=== PATIENT | male | born 1945 | race African-American/Black ===

== ENCOUNTER 2016-08-06 13:26 | Inpatient (IN) | payer MEDICARE, MEDICAID ==
[~2016-08-06] VITALS: Ht 172.7 cm; Wt 109.2 kg
[~2016-08-06 13:26] MED LIST: 00186-0370-20; ACETAMI; ADVAIR HFA1 AE1 IH; ALBUTEROL0.83 MG/ML IH; ALBUTEROL1.25 MG/3; ASPIRIN 32325 MG/TA1 PO; ASPIRIN 32325 MG/TAB PO; ASPIRIN PO; BENICAR HCT 12.1 TAB PO; BENICAR HCT 251 TAB PO; CENTRUM SILVER1 TA3 PO; CIPRO 500MG TA500 MG PO; COMBIRESP IH; COMPLETE SENIOR1 TA1 PO; D O S100 MG PO; DALIRESP500 MCG PO; DEXILANT60 MG PO; FERROUS SU325 MG/TAB PO; FLOMAX 0.40.4 MG/CAP PO; GLUCOPHAGE500 MG/TAB PO; HCTZ 25MG TAB25 MG PO; HCTZ 25MG25 MG PO; HYDROCODONE; HYZAAR 50-12.1 UDTAB PO; IPRATROPIUM BROM3 M1 IH; LEVAQUIN 5500 MG/TA1 PO; LEVAQUIN 750MG750 M1 PO; LISINOPRIL20 MG PO; LORTAB 7.5/5001 TAB PO; LOTENSIN HCT 201 TAB; METFORMIN500 MG PO; MOTRIN 200200 MG/TAB PO; MULTI VITAMINS1 TAB PO; MULTIPLE VITAMI1 CAP PO; NORCO 325 MG-51 TAB; NORCO 325 MG-51 TAB PO; NORCO 325 MG-7.1 TAB PO; NORVASC 10MG10 MG PO; PREDNISONE20 MG PO; PRIL40; PRIL40 PO; PRILOSEC 20MG20 MG PO; PRINIVIL20 MG PO; PROTONIX 40MG T40 MG PO; PROVENTIL0.09 MG/A1 IH; SIMVASTATIN40 MG PO; STOOL SOFTENER100 M2 PO; THEO-24 30300 MG/CAP PO; TUSS PO; ZITHROMAX 250M250 MG PO; ZITHROMAX500 M2 PO; ZOCOR 40MG40 MG PO; aspirin
[2016-08-06] MEDS ORDERED: ASPIRIN E.C. 8181 MG PO (14:00)
[2016-08-06] MEDS ORDERED: ANORO IH (14:00)
[2016-08-06] MEDS ORDERED: THEO-24 30300 MG/CAP PO (14:02)
[2016-08-06 14:11] LABS: HEMATOCRIT 41.7 % (42.0-52.0); HEMOGLOBIN 13.9 g/dl (13.5-18.0); MEAN CELL VOLUME 83 fl (80.0-100.0); MEAN CORPUSCULAR HEMOGLOBIN 28 pg (27.0-31.0); MEAN CORPUSCULAR HGB CONC 33 g/dl (33.0-37.0); MEAN PLATELET VOLUME 9.2 fl (7.4-10.4); PLATELET COUNT 194 K/mm3 (130-400); RED BLOOD COUNT 5.02 M/mm3 (4.20-5.60); REDCELL DISTRIBUTION WIDTH-CV 14.5 % (11.5-14.5)
[2016-08-06 14:14] LABS: ADD PATHOLOGY DIFF REVIEW NO; WHITE BLOOD COUNT 23.6 K/mm3 (4.8-10.8)
[2016-08-06] MEDS ORDERED: COZAAR 50MG50 MG/TAB PO (14:15)
[2016-08-06] MEDS ORDERED: PREDNISONE10 MG PO (14:18)
[2016-08-06] MEDS ORDERED: FLOVENT 110MCG7.9 GM IH (14:19)
[2016-08-06 14:24] LABS: INR 1.3 (0.8-3.0); PROTHROMBIN TIME 14.3 SECONDS (9.7-12.8)
[2016-08-06 14:29] LABS: ADJUSTED CALCIUM 9.8 mg/dL (8.4-10.2); ALANINE AMINOTRANSFERASE 21 U/L (21-72); ALBUMIN 3.6 gm/dL (3.5-5.0); ALKALINE PHOSPHATASE 79 U/L (50-136); ANION GAP 14 mmol/L (7-16); BILIRUBIN,TOTAL 1.2 mg/dL (0.0-1.0); BLOOD UREA NITROGEN 24 mg/dL (9-20); CALCIUM 9.5 mg/dL (8.4-10.2); CARBON DIOXIDE 24 mmol/L (22-30); CHLORIDE 98 mmol/L (98-107); CREATININE, serum 1.18 mg/dL (0.66-1.25); GLUCOSE 138 mg/dL (74-106); POTASSIUM 3.1 mmol/L (3.4-5.0); SODIUM 136 mmol/L (137-145); TOTAL PROTEIN 7.4 gm/dL (6.4-8.2)
[2016-08-06 14:40] LABS: B-TYPE NATRIURETIC PEPTIDE 126 pg/mL (0-125); TROPONIN-I < 0.012 ng/mL (0.000-0.034)
[2016-08-06 14:53] LABS: BAND 8 % (0-10); NEUTROPHILS 83 % (42.0-75.2); PLATELET ESTIMATE NORMAL (NORMAL)
[2016-08-06 14:56] LABS: DOHLE BODIES PRESENT; TOXIC GRANULATION PRESENT
[2016-08-06 14:57] LABS: TOTAL CELLS COUNTED 200
[2016-08-06 16:00] VITALS: BP 111/62; PULSE 103; TEMP 98.1
[2016-08-06 17:18] LABS: INFLUENZA B NEGATIVE
[2016-08-06 19:33] VITALS: BP 118/72; PULSE 96; TEMP 98.3
[2016-08-06 23:13] VITALS: BP 119/84; PULSE 88; TEMP 98.2
[2016-08-07 03:43] VITALS: BP 130/82; PULSE 83; TEMP 98.1
[2016-08-07 06:54] LABS: ADD PATHOLOGY DIFF REVIEW NO
[2016-08-07 07:09] LABS: CALCIUM 8.9 mg/dL (8.4-10.2); CREATININE, serum 0.9 mg/dL (0.66-1.25); MAGNESIUM 1.9 mg/dL (1.6-2.3); POTASSIUM 3.5 mmol/L (3.4-5.0)
[2016-08-07 07:27] LABS: HEMOGLOBIN 12.2 g/dl (13.5-18.0); MEAN CELL VOLUME 83 fl (80.0-100.0); MEAN CORPUSCULAR HEMOGLOBIN 28 pg (27.0-31.0); MEAN CORPUSCULAR HGB CONC 34 g/dl (33.0-37.0); MEAN PLATELET VOLUME 9.6 fl (7.4-10.4); PLATELET COUNT 204 K/mm3 (130-400); RED BLOOD COUNT 4.37 M/mm3 (4.20-5.60); REDCELL DISTRIBUTION WIDTH-CV 14.6 % (11.5-14.5); WHITE BLOOD COUNT 12.7 K/mm3 (4.8-10.8)
[2016-08-07 07:32] LABS: HEMATOCRIT 36.2 % (42.0-52.0)
[2016-08-07 07:52] VITALS: BP 139/81; PULSE 84; TEMP 97.6
[2016-08-07 08:09] LABS: BAND 16 % (0-10); NEUTROPHILS 70 % (42.0-75.2); TOTAL CELLS COUNTED 100
[2016-08-07 08:10] LABS: PLATELET ESTIMATE NORMAL (NORMAL)
[2016-08-07 11:54] VITALS: BP 109/63; PULSE 93; TEMP 97.9
[2016-08-07 16:23] VITALS: BP 136/74; PULSE 84; TEMP 97.9
[2016-08-07 20:36] VITALS: BP 140/67; PULSE 92; TEMP 97.8
[2016-08-07 23:44] VITALS: BP 94/40; PULSE 78; TEMP 97.7
[2016-08-08] VITALS (9 sets, daily range): BP systolic 117–155; BP diastolic 53–81; PULSE 65–96; TEMP 97.7–98.7
[2016-08-08 07:28] LABS: HEMOGLOBIN 12.3 g/dl (13.5-18.0); MEAN CELL VOLUME 83 fl (80.0-100.0); MEAN CORPUSCULAR HEMOGLOBIN 28 pg (27.0-31.0); MEAN CORPUSCULAR HGB CONC 33 g/dl (33.0-37.0); MEAN PLATELET VOLUME 9.3 fl (7.4-10.4); PLATELET COUNT 227 K/mm3 (130-400); RED BLOOD COUNT 4.44 M/mm3 (4.20-5.60); REDCELL DISTRIBUTION WIDTH-CV 14.6 % (11.5-14.5); WHITE BLOOD COUNT 16.3 K/mm3 (4.8-10.8)
[2016-08-08 07:36] LABS: ADD PATHOLOGY DIFF REVIEW NO; HEMATOCRIT 36.8 % (42.0-52.0)
[2016-08-08 07:48] LABS: CALCIUM 9.1 mg/dL (8.4-10.2); CREATININE, serum 0.93 mg/dL (0.66-1.25); POTASSIUM 3.2 mmol/L (3.4-5.0)
[2016-08-08 09:03] LABS: BAND 5 % (0-10); NEUTROPHILS 82 % (42.0-75.2); TOTAL CELLS COUNTED 100
[2016-08-09 03:36] VITALS: BP 124/50; PULSE 77; TEMP 98.1
[2016-08-09 07:33] VITALS: BP 140/58; PULSE 82; TEMP 96.8
[2016-08-09 11:02] VITALS: BP 142/77; PULSE 84; TEMP 98.2
[2016-08-09 11:48] LABS: HEMATOCRIT 39.8 % (42.0-52.0); MEAN CELL VOLUME 85 fl (80.0-100.0); MEAN CORPUSCULAR HEMOGLOBIN 28 pg (27.0-31.0); MEAN CORPUSCULAR HGB CONC 33 g/dl (33.0-37.0); MEAN PLATELET VOLUME 9.3 fl (7.4-10.4); PLATELET COUNT 218 K/mm3 (130-400); RED BLOOD COUNT 4.71 M/mm3 (4.20-5.60); REDCELL DISTRIBUTION WIDTH-CV 14.7 % (11.5-14.5); WHITE BLOOD COUNT 13.9 K/mm3 (4.8-10.8)
[2016-08-09 11:50] LABS: CALCIUM 8.9 mg/dL (8.4-10.2); CREATININE, serum 0.89 mg/dL (0.66-1.25)
[2016-08-09] MEDS ORDERED: LEVAQUIN 750MG750 M1 PO (13:23)
[2016-08-09] MEDS ORDERED: PREDNISONE20 MG PO (13:26)
[2016-08-09 14:17] LABS: BAND 2 % (0-10); NEUTROPHILS 63 % (42.0-75.2)
[2016-08-09 14:18] LABS: ADD PATHOLOGY DIFF REVIEW YES; PLATELET ESTIMATE NORMAL (NORMAL)
[2016-08-09 14:19] LABS: ANISOCYTOSIS 1+; METAMYELOCYTE 1 % (0-0); MYELOCYTE 1 % (0-0); TOTAL CELLS COUNTED 100
[2016-08-09 14:26] LABS: OVALOCYTES 1+; POLYCHROMASIA 1+
[2016-08-10 08:43] LABS: PATHOLOGY DIFF REVIEW OK
== END 2016-08-09 14:47 | disposition home or self-care (01) | DRG 163 ==
LOC: COL.ER 13:26 → MEDICAL 15:07
PROVIDERS: Emergency Medicine; Internal Medicine; Internal Medicine Pulmonary Disease; Nurse Practitioner Family; Physician Assistant
PROC: 0B9B8ZZ Drainage of Left Lower Lobe Bronchus, Via Natural or Artificial Opening Endoscopic (ICD-10-PCS; 2016-08-08)
PROC: 0B998ZZ Drainage of Lingula Bronchus, Via Natural or Artificial Opening Endoscopic (ICD-10-PCS; 2016-08-08)
PROC: 0B9B8ZZ Drainage of Left Lower Lobe Bronchus, Via Natural or Artificial Opening Endoscopic (ICD-10-PCS; 2016-08-08)
PROC: 0B958ZZ Drainage of Right Middle Lobe Bronchus, Via Natural or Artificial Opening Endoscopic (ICD-10-PCS; principal; 2016-08-08 09:30)
DX: J44.0 Chronic obstructive pulmonary disease with (acute) lower respiratory infection (principal); J18.9 Pneumonia, unspecified organism; I11.0 Hypertensive heart disease with heart failure; I50.30 Unspecified diastolic (congestive) heart failure; J44.1 Chronic obstructive pulmonary disease with (acute) exacerbation; E87.6 Hypokalemia; G47.33 Obstructive sleep apnea (adult) (pediatric); E11.9 Type 2 diabetes mellitus without complications; Z87.891 Personal history of nicotine dependence
CPT/HCPCS: 99223-AI; 99232-AI; 99239; J0696; J1650; J1815; J2405; J2704; J2920; J2930; J3010; J7030; J7512

== ENCOUNTER 2017-03-19 09:13 | Emergency (ER) | payer MEDICARE, MEDICAID ==
[~2017-03-19] VITALS: Ht 172.7 cm; Wt 115.9 kg
[~2017-03-19 09:13] MED LIST changes: +ANORO IH; +ASPIRIN E.C. 8181 MG PO; +COZAAR 50MG50 MG/TAB PO; +FLOVENT 110MCG7.9 GM IH; +PREDNISONE10 MG PO
[2017-03-19 09:22] VITALS: TEMP 98.4
[2017-03-19 10:01] LABS: BASO % 0.2 % (0.0-2.0); EOS # 0.1 (0.0-0.7); EOS % 1.1 % (0-4.0); GRAN % 70.5 % (42.2-75.2); LYMPH # 1.8 (1.2-3.4); LYMPH % 18.1 % (20.0-51.0); MEAN CELL VOLUME 87 fl (80.0-100.0); MEAN CORPUSCULAR HEMOGLOBIN 28 pg (27.0-31.0); MEAN CORPUSCULAR HGB CONC 33 g/dl (33.0-37.0); MEAN PLATELET VOLUME 9.6 fl (7.4-10.4); MONO % 9.9 % (1.7-9.3); PLATELET COUNT 172 K/mm3 (130-400); RED BLOOD COUNT 4.95 M/mm3 (4.20-5.60)
[2017-03-19 10:27] LABS: BILIRUBIN,TOTAL 0.7 mg/dL (0.0-1.0); C-REACTIVE PROTEIN 5.7 mg/dL (0.0-0.9); CREATININE, serum 0.91 mg/dL (0.66-1.25); POTASSIUM 3.4 mmol/L (3.4-5.0)
[2017-03-19 10:28] LABS: COLLECTION METHOD CLEAN CATCH
[2017-03-19 11:04] LABS: MUCOUS Present /lpf; PH 6 (5-8); SQUAMOUS EPITHELIAL 0-2 /hpf; URINE APPEARANCE Cloudy; URINE BACTERIA Occasional /hpf; URINE BILIRUBIN Negative (NEGATIVE); URINE BLOOD 3+ (NEGATIVE); URINE COLOR Yellow; URINE GLUCOSE Negative (NEGATIVE); URINE KETONE Negative (NEGATIVE); URINE LEUKOCYTE ESTERASE 3+ (NEGATIVE); URINE PROTEIN(semi-quant) 2+ (NEGATIVE); URINE RBC >50 /hpf; URINE UROBILINOGEN Negative (NEGATIVE)
[2017-03-19 11:05] LABS: URINE WBC >50 /hpf
[2017-03-19] MEDS ORDERED: NORVASC 10MG10 MG PO (11:17)
[2017-03-19] MEDS ORDERED: CIPRO 500MG TA500 MG PO (11:34)
[2017-03-19] MEDS ORDERED: NORCO 325 MG-51 TAB PO (11:49)
[2017-03-19 12:09] VITALS: BP 142/85; PULSE 75
== END 2017-03-19 12:08 | disposition home or self-care (01) ==
LOC: COL.ER 09:13
PROVIDERS: Family Medicine
DX: N39.0 Urinary tract infection, site not specified (principal); N40.1 Benign prostatic hyperplasia with lower urinary tract symptoms; N13.8 Other obstructive and reflux uropathy; I25.10 Atherosclerotic heart disease of native coronary artery without angina pectoris; I10 Essential (primary) hypertension; Z95.1 Presence of aortocoronary bypass graft; E11.9 Type 2 diabetes mellitus without complications
CPT/HCPCS: J2270; J2405; J7030; Q9967

== ENCOUNTER 2018-05-27 09:30 | Emergency (ER) | payer MEDICARE ==
[~2018-05-27] VITALS: Ht 172.7 cm; Wt 111.4 kg
[2018-05-27 09:32] VITALS: TEMP 97.2
[2018-05-27] MEDS ORDERED: DOXYCYCLINE 10100 MG PO ×2 (09:46→09:57)
[2018-05-27] MEDS ORDERED: PREDNISONE20 MG PO ×2 (09:46→09:57)
[2018-05-27] MEDS ORDERED: GLUCOPHAGE500 MG/TAB PO (09:52)
[2018-05-27] MEDS ORDERED: ZOCOR 20MG20 MG PO (09:53)
[2018-05-27] MEDS ORDERED: PROTONIX 40MG T40 MG PO (09:53)
[2018-05-27] MEDS ORDERED: COZAAR 50MG50 MG/TAB PO (09:53)
[2018-05-27] MEDS ORDERED: OMEGA-3 1000 MG1 CAP PO (09:54)
[2018-05-27] MEDS ORDERED: NORVASC 10MG10 MG PO (09:54)
[2018-05-27 10:27] VITALS: BP 148/66; PULSE 80
== END 2018-05-27 10:27 | disposition home or self-care (01) ==
LOC: COL.ER 09:30
DX: R05 Cough (principal); J44.9 Chronic obstructive pulmonary disease, unspecified; I10 Essential (primary) hypertension; E78.5 Hyperlipidemia, unspecified; E11.9 Type 2 diabetes mellitus without complications; Z87.891 Personal history of nicotine dependence; Z95.1 Presence of aortocoronary bypass graft; Z79.84 Long term (current) use of oral hypoglycemic drugs

== ENCOUNTER 2018-10-31 16:09 | Emergency (ER) | payer OTHER ==
[~2018-10-31] VITALS: Ht 172.7 cm; Wt 111.4 kg
[~2018-10-31 16:09] MED LIST changes: +DOXYCYCLINE 10100 MG PO; +OMEGA-3 1000 MG1 CAP PO; +ZOCOR 20MG20 MG PO
[2018-10-31 16:12] VITALS: BP 136/65; PULSE 73; TEMP 99.1
[2018-10-31] MEDS ORDERED: CEPHALEXIN500 M1 PO (16:27)
[2018-10-31] MEDS ORDERED: ANORO IH (16:28)
== END 2018-10-31 16:55 | disposition home or self-care (01) ==
LOC: COL.ER 16:09
DX: L02.01 Cutaneous abscess of face (principal); E11.9 Type 2 diabetes mellitus without complications; I10 Essential (primary) hypertension; E78.00 Pure hypercholesterolemia, unspecified; Z79.84 Long term (current) use of oral hypoglycemic drugs

== ENCOUNTER 2024-02-06 13:14 | Observation (INO) | payer MEDICARE ==
[~2024-02-06] VITALS: Ht 172.7 cm; Wt 102.4 kg
[2024-02-06] VITALS (13 sets, daily range): BP systolic 110–197; BP diastolic 46–111; PULSE 72–115; TEMP 98–99.2
[~2024-02-06 13:14] MED LIST changes: +CEFTIN 250250 MG/TAB PO; +CEPHALEXIN500 M1 PO; +CORDARONE200 MG/TAB PO; +DULCOLAX STOOL100 MG PO; +ELIQUIS 5MG PO; +LASIX 20MG TABL20 MG PO; +MEGACE 40MG40 MG/TAB PO; +TRAVEL SICKNESS25 MG PO; +TRELEGY ELLIPT1 EACH IH
[2024-02-06] MEDS ORDERED: Morphine 4 MG/ML VIAL IV PRN ×2 (13:15→16:45)
--- NOTE | 2024-02-06 13:24 | NUR ---
Pt. arrived to the floor at 1300. Pt. transfered to bed with 3 assist. Shift assessment complete. Ivnoted to lt ac. Pt. with 3 way riojas catheter, Catheter is not draining, attempted irrigation without success. Dr. Ga notified. 22Fr. 3-way riojas placed. Continue to not have any urine return. ABELARDO Molina assisted with the situation. Minimal drainage noted. Bladder scanned the pt. 505mls noted. Dr. Ga notified of the situation. New orders recieved.
[2024-02-06] MEDS ORDERED: NS 1,000 ML IV SCH (13:45)
[2024-02-06] MEDS ORDERED: Ondansetron 4 MG/2 ML VIAL IV PRN ×2 (13:45→16:45)
--- NOTE | 2024-02-06 15:35 | NUR ---
Took over pt from ABELARDO Herrera. Perez is draining but slowly. Output is dark red at this time. Discussed plan is for surgery later this afternoon. Explained urologist would come and talk to him prior to surgery, either on the floor or down prior to surgery. No questions at this time
[2024-02-06] MEDS ORDERED: Lidocaine PF 2% (20 MG/ML) 5 ML VIAL ONE (16:05)
[2024-02-06] MEDS ORDERED: Ondansetron 4 MG/2 ML VIAL ONE (16:06)
[2024-02-06] MEDS ORDERED: Glycopyrrolate 0.2 MG/ML 1 ML VIAL ONE (16:06)
--- NOTE | 2024-02-06 16:29 | NUR ---
Pacu staff here to get pt for surgery. Consent not signed but sent down with pt.
[2024-02-06] MEDS ORDERED: Hyoscyamine 0.125 MG Sublingual TAB SL PRN ×2 (16:45)
[2024-02-06] MEDS ORDERED: NS Irrig Soln 3000 ML SOLN IR PRN (16:45)
[2024-02-06] MEDS ORDERED: Magnes Hydrox (MOM) 80 MG/ML 30 ML CUP PO PRN (16:45)
[2024-02-06] MEDS ORDERED: 1/2 NS 1,000 ML IV SCH (16:45)
[2024-02-06] MEDS ORDERED: oxyCODONE/Acetaminophen 5-325 MG TAB PO PRN (16:45)
[2024-02-06] MEDS ORDERED: fentaNYL 50 MCG/ML 2 ML VIAL ONE (16:55)
[2024-02-06] MEDS ORDERED: Insulin Lispro (HumaLOG) SQ SCH (17:00)
[2024-02-06] MEDS ORDERED: Dextrose (Glucose) 15 GM (4 x 3.75 GM) Chewable TABLET PACK PO PRN (17:00)
[2024-02-06] MEDS ORDERED: Dextrose 50% Water 25 GM/50 ML SYRINGE IV PRN (17:00)
[2024-02-06] MEDS ORDERED: Glucagon 1 MG VIAL IM PRN (17:00)
[2024-02-06] MEDS ORDERED: ePHEDrine 50 MG/ML VIAL ONE (17:13)
[2024-02-06] MEDS ORDERED: Lidocaine 2% (20 MG/ML) 20 ML UROJET UR ONE (17:30)
[2024-02-06] MEDS ORDERED: fentaNYL 50 MCG/ML 2 ML VIAL IV PRN (18:15)
[2024-02-06] MEDS ORDERED: fentaNYL 50 MCG/ML 1 ML SYRINGE/VIAL [PACU/SDC ONLY] IV ONE (18:28)
--- NOTE | 2024-02-06 18:52 | NUR ---
Pt just arrived back from surgery. CBI running at moderate rate, output is clear, pale yellow. Educated pt to notify nursing if he gets the urge to void. IVF infusing to left AC. Pt reports not having any pain at this time. I did give him some ice water and ordered a dinner tray for him. Family at bedside, no other needs, will continue to monitor
[2024-02-06] MEDS ORDERED: Albuterol 0.083% Neb Soln 2.5 MG/3 ML UD IH PRN (19:00)
--- NOTE | 2024-02-06 20:13 | NUR ---
PACU nurse called around 1934 and reported patient was having frequent PVCs in PACU. This nurse called Dr. Ga and updated and asked if he wanted to have patient on telemetry for tonight. New order received for tele, as well as lab orders for tomorrow. Orders palced. Telemetry placed on patient. Patient is alert and oriented, and able to make needs known. Denies having pain and discomfort. Peripheral IV to left AC. IV fluids running. Denies SOB and dyspnea. LS CTA. HRR. BSAx4. CBI running slow, clear output. Continues to run slow per Harmeet due to high risk of bleeding again. Patient voices no questions, needs, or concerns at this time. In bed with call light within reach. at bedside.
[2024-02-07] VITALS (10 sets, daily range): BP systolic 112–169; BP diastolic 67–99; PULSE 86–100; TEMP 97.9–99.2
--- NOTE | 2024-02-07 06:04 | NUR ---
Patient given PRN Levsin and Percocet as requested during the night for pain. Urine was pink/clear once this shift, otherwise has been clear and yellow throughout this shift. Voices no questions, needs, or concerns at this time. In bed with call light within reach.
[2024-02-07 06:31] LABS: BASO % 0.2 % (0.0-2.0); EOS % 0.2 % (0.0-4.0); GRAN # 9.4 K/mm3 (1.4-6.5); GRAN % 78.6 % (42.2-75.2); LYMPH # 1.1 K/mm3 (1.2-3.4); LYMPH % 9.2 % (20.0-51.0); MEAN CELL VOLUME 78 fl (80.0-100.0); MEAN CORPUSCULAR HEMOGLOBIN 25 pg (27-31); MEAN CORPUSCULAR HGB CONC 33 g/dl (33.0-37.0); MEAN PLATELET VOLUME 9.2 fl (7.4-10.4); MONO # 1.4 K/mm3 (0.1-0.6); MONO % 11.5 % (1.7-9.3); PLATELET COUNT 282 K/mm3 (130-400); RED BLOOD COUNT 3.94 M/mm3 (4.20-5.60); REDCELL DISTRIBUTION WIDTH-CV 16.2 % (11.5-14.5)
[2024-02-07 06:34] LABS: HEMATOCRIT 30.7 % (42.0-52.0)
[2024-02-07 06:52] LABS: CALCIUM 8.1 mg/dL (8.4-10.2); CREATININE, serum 1.05 mg/dL (0.72-1.25); POTASSIUM 3.2 mEq/L (3.5-4.5)
--- NOTE | 2024-02-07 08:00 | NUR ---
PATIENT IS ORIENTED BUT DROWSY AND ASKED NURSING IF HE COULD SLEEP IN. UROLOGY ROUNDED EARLY THIS AM, SEE ORDERS. PATIENT RESTING IN ROOM WITH LIGHTS DOWN AND CALL LIGHT IN REACH.
[2024-02-07] MEDS ORDERED: amLODIPine 10 MG TAB PO SCH (09:00)
[2024-02-07] MEDS ORDERED: Losartan 50 MG TAB PO SCH (09:00)
--- NOTE | 2024-02-07 10:30 | NUR ---
P&P PER ORDERS WITH CHEMO PRECAUTIONS UTILIZED. URINAL AT BEDSIDE AND PATIENT GIVEN EDUCATION ON 6 CUP ROUTINE. NURSING ENCOURAGED PO FLUID INTAKE.
--- NOTE | 2024-02-07 13:18 | NUR ---
aniline press worker met with patient to discuss discharge planning. Patient lives at home in [place] with his , Ashwini, P# [phone]. Patient also provided his brother, Eric, P# [phone] or P# [phone]. PCP is Dr. Aleman, Pharmacy is [facility] in [place]. No issues affording medications. No DPOA-HC but patient wanted to complete one, appointing his as primary and his brother as secondary. SW and Nurse witnessed patient's signature. SW made copies, placed copy in chart and provided original and copies to patient. DME is oxygen, CPAP, inhaler. Patient reports to be independent with ADLS and has a form of transportation to and from appointments. Insurance is Medicare [employer]. Patient would like to return home at time of discharge. Discharge plan: Home
--- NOTE | 2024-02-07 13:40 | NUR ---
PATIENT OUT WALKING HALLS AGAIN TO TRY AND STIMULATE BLADDER. PATIENT HAS NOT BEEN ABLE TO VOID SINCE P&P. ENCOURAGED FLUID INTAKE. PLAN IS TO BLADDER SCAN AT 1400 IF NOT VOIDED.
--- NOTE | 2024-02-07 16:00 | NUR ---
AT BEDSIDE. PATIENT STILL UNABLE TO VOID POST P&P. PLACED 20F COUDE CARREON PER . PLACED ON 1ST ATTEMPT AND PATIENT TOLERATED WELL. DRAINING LIGHT PINK URINE, NO CLOTS.
[2024-02-07] MEDS ORDERED: Benzonatate 100 MG CAP PO PRN (21:00)
--- NOTE | 2024-02-07 21:20 | NUR ---
Patient assessed around 1939. Alert and oriented, and able to make needs known. Reports pain medication was effective with pain management. Peripheral INT to left AC. Denies SOB and dyspnea. LS CTA in upper lobes, diminished in lower. Does have cough, unable to cough up any sputum. Call placed to Dr. Ga around 2054, new order for PRN Tessalon Peerls, and given. HRI. Telemetry in place, sinus dysrhythmia. BSAx4. Indwelling riojas catheter, has pink to yellow urine, clear, no clots. Encouraged to drink lots of fluids. Voices no further questions, needs, or concerns at this time. In bed with call light within reach.
[2024-02-08 00:14] VITALS: BP 118/69; PULSE 100; TEMP 99.7
[2024-02-08 04:50] VITALS: BP 135/73; PULSE 103; TEMP 99.8
--- NOTE | 2024-02-08 05:49 | NUR ---
Patient has denied pain and discomfort this shift. Catheter draining clear urine. Beaman at times, then yellow, then back to pink again. No clots. Voices no questions, needs, or concerns at this time. In bed with call light within reach.
[2024-02-08 07:22] VITALS: BP 112/74; PULSE 81; TEMP 99.3
[2024-02-08 08:00] VITALS: BP_SYST 112
--- NOTE | 2024-02-08 08:00 | NUR ---
PATIENT IS A&O. VSS. REPORTS MILD ISSUES WITH BLADDER SPASMS & PAIN. GAVE PRN LEVSIN. CARREON TO DD WITH MOD AMOUNTS OF PINK URINE, NO CLOTS. PATIENT EAT/DRINKING WELL. HEAD TO TOE ASSESSMENT WNL. AM MEDS GIVEN. LEFT AC IV TO INT. BREAKFAST TRAY AT BEDSIDE. AM BS WAS 112, NO SSI REQUIRED. NOTED OCCATIONAL COUGH, NON-PRODUCTIVE, PATIENT REPORTS HE HAS HAD THE COUGH. GAVE PRN RENARD DUEÑAS, SEE MAR. NO OTHER NEEDS AT THIS TIME. CALL LIGHT IN REACH.
[2024-02-08] MEDS ORDERED: MACROBID 1100 MG/CAP PO (10:44)
[2024-02-08] MEDS ORDERED: LEVSIN 0.10.125 MG/T SL (10:44)
[2024-02-08 11:27] VITALS: BP 119/77; PULSE 95; TEMP 99.4
[2024-02-08 12:57] VITALS: BP_SYST 119
--- NOTE | 2024-02-08 15:10 | NUR ---
PATIENT'S IS NOW HERE. GAVE DISCHARGE INSTRUCTIONS AND E-SCRIPTS SENT. PATIENT HAS HAD A CARREON & LEG BAG IN THE PAST, RN REVIEWED BARON POINTS OF CARING FOR HIS CARREON & LEG BAG, SUPPLIES SENT. ANSWERED QUESTIONS/CONCERNS. IV ALREADY DC'D AND SITE COVERED WITH GAUZE & COBAN. PATIENT IS DRESSED, PACKED AND ESCORTED OUT VIA WC TO PERSONAL VEHICLE WITH .
== END 2024-02-08 15:15 | disposition home or self-care (01) ==
LOC: SDCO 13:14 → SURG 13:17 → SDCO 16:30 → SURG 16:40 → SDCO 16:42 → SURG 16:43
PROVIDERS: ADMIT Urology
DX: R31.0 Gross hematuria (principal); R33.9 Retention of urine, unspecified; E11.9 Type 2 diabetes mellitus without complications; Z79.84 Long term (current) use of oral hypoglycemic drugs; Z87.891 Personal history of nicotine dependence; Z85.46 Personal history of malignant neoplasm of prostate; Z87.09 Personal history of other diseases of the respiratory system
CPT/HCPCS: C1769; G0378; J2270; J2405; J2704; J3010; J7030